=== PATIENT | male | born 1940 | race Caucasian/White ===

== ENCOUNTER 2023-10-14 11:52 | Emergency (ER) | payer OTHER, SELFPAY ==
[2023-10-14 11:55] VITALS: BP 153/66; PULSE 54; RESP 16; TEMP 36.6; O2SAT 98; BMI 32.4
--- NOTE | 2023-10-14 12:30 | ED_ITS ---
HPI - Wound/Laceration <Chanel Sloan PA-C - Last Filed: 10/14/23 13:09> General Chief Complaint: Wound/Laceration Stated Complaint: lt hand lac/index and middle finger Time Seen by Provider: 10/14/23 12:11 Source: patient and family Mode of arrival: Ambulatory History of Present Illness HPI narrative: 83-year-old male with past medical history CVA, CAD presents to the ED for laceration sustained to the left hand. Sustained the lacerations 2 6 hours ago, tried to apply pressure bandages to control the bleeding. Patient decided to come into the ED today given that his wounds have continued to ooze. Patient is on Plavix. Patient endorses some pain at the site of the lacerations but denies numbness, tingling, weakness. Patient endorses full range of motion of all fingers. Related Data Allergies Allergy/AdvReac Type Severity Reaction Status Date / Time No Known Drug Allergies Allergy Verified 10/14/23 12:00 Review of Systems <Chanel Sloan PA-C - Last Filed: 10/14/23 13:09> Constitutional Constitutional: Denies chills, Denies fatigue, Denies fever(s), Denies frequent falls, Denies lethargy and Denies weakness Eyes Eyes: Denies change in vision, Denies eye discharge, Denies irritation and Denies loss of vision ENT Ears, Nose, Mouth, and Throat: Denies change in voice, Denies dizziness, Denies neck pain, Denies sore throat and Denies throat swelling Cardiovascular Cardiovascular: Denies chest pain, Denies irregular heart rhythm, Denies lightheadedness, Denies palpitations, Denies dyspnea, Denies dyspnea on exertion and Denies orthopnea Respiratory Respiratory: Denies cough, Denies dyspnea, Denies dyspnea on exertion and Denies wheezing Gastrointestinal Gastrointestinal: Denies abdominal pain, Denies change in bowel habits, Denies diarrhea, Denies nausea and Denies vomiting Musculoskeletal Musculoskeletal: Denies neck pain and Denies numbness Integumentary/Breasts Skin/Breast: Denies pruritus, Denies erythema, Denies rash and Reports wounds Neurologic Neurologic: Denies behavioral changes, Denies confusion, Denies dizziness, Denies frequent falls, Denies loss of vision, Denies numbness and Denies weakness Psychiatric Psychiatric: Denies anxiety, Denies behavioral changes, Denies confusion, Denies depression, Denies homicidal ideation and Denies suicidal ideation Endocrine Endocrine: Denies fatigue, Denies flushing and Denies palpitations Hematologic/Lymphatic Hematologic/Lymphatic: Denies easy bruising Allergic/Immunologic Allergic/Immunologic: Denies urticaria, Denies throat swelling and Denies wheezing Patient History <Chanel Sloan PA-C - Last Filed: 10/14/23 13:09> Social History Smoking Status: Former smoker Smoking Status: Former smoker alcohol intake frequency: a few times a month Substance Use Type: does not use Exam <Chanel Sloan PA-C - Last Filed: 10/14/23 13:09> Narrative Exam Narrative: Const General:?cooperative, healthy appearing and comfortable [facility] Head:?normal to inspection Ears:?hearing grossly normal bilaterally Nose:?external nose normal Face and sinus:?normal facial exam and sinuses nontender Mouth:?oral mucosae normal Throat:?posterior oropharynx normal Eyes General:?appearance normal, both eyes and all related structures Neck Neck:?normal visual inspection and no lymphadenopathy noted Resp Effort & Inspection:?normal respiratory effort Auscultation:?clear to auscultation bilaterally Cardio Rate:?regular rate Rhythm:?regular rhythm Integumentary There is a laceration to the 3rd digit of the left hand, lateral to the nail. There is also a laceration to the base of 2nd nail bed. No underlying structures visualized on exam. There is full range of motion of both fingers. Strength and sensation is intact. Patient is neurovascularly intact. Wounds appear to be oozing blood but no pulsatile bleeding. Neuro General:?patient alert, patient awake and patient oriented x3 Initial Vital Signs Initial Vital Signs: Vital Signs Temperature 97.9 F 10/14/23 11:55 Pulse Rate 54 L 10/14/23 11:55 Respiratory Rate 16 10/14/23 11:55 Blood Pressure 153/66 H 10/14/23 11:55 Pulse Oximetry 98 10/14/23 11:55 Oxygen Delivery Method Room Air 10/14/23 11:55 <Stephen Hutchinson DO - Last Filed: 10/14/23 13:16> Initial Vital Signs Initial Vital Signs: Vital Signs Temperature 97.9 F 10/14/23 11:55 Pulse Rate 54 L 10/14/23 11:55 Respiratory Rate 16 10/14/23 11:55 Blood Pressure 153/66 H 10/14/23 11:55 Pulse Oximetry 98 10/14/23 11:55 Oxygen Delivery Method Room Air 10/14/23 11:55 Course <Chanel Sloan PA-C - Last Filed: 10/14/23 13:09> Orders Ordered: Discontinued Medications Diphtheria/Tetanus/Acell Pertussis (Tet,Diph,Pertuss(Acell),Vac/Pf 0.5 Ml Syringe) 0.5 ml IM .ONCE ONE Stop: 10/14/23 12:02 Last Admin: 10/14/23 12:44 Dose: 0.5 ml Documented By: MICKEY Vital Signs Vital signs: Vital Signs - 8 hr 10/14/23 11:55 Temperature 97.9 F Pulse Rate 54 L Respiratory Rate 16 Blood Pressure 153/66 H Pulse Oximetry 98 Oxygen Delivery Method Room Air <Stephen Hutchinson DO - Last Filed: 10/14/23 13:16> Orders Ordered: Discontinued Medications Diphtheria/Tetanus/Acell Pertussis (Tet,Diph,Pertuss(Acell),Vac/Pf 0.5 Ml Syringe) 0.5 ml IM .ONCE ONE Stop: 10/14/23 12:02 Last Admin: 10/14/23 12:44 Dose: 0.5 ml Documented By: MICKEY Vital Signs Vital signs: Vital Signs - 8 hr 10/14/23 11:55 Temperature 97.9 F Pulse Rate 54 L Respiratory Rate 16 Blood Pressure 153/66 H Pulse Oximetry 98 Oxygen Delivery Method Room Air MDM - Wound/Laceration <Chanel Sloan PA-C - Last Filed: 10/14/23 13:09> MDM Narrative Medical decision making narrative: 83-year-old male with past medical history CVA, CAD presents to the ED for laceration sustained to the left hand. On physical exam, patient has lacerations to the tip of the 2nd and 3rd digits of the left hand. Laceration is not deep enough for suspicion of bony injury. No underlying structures v isualized on exam. Given that the wound is more than 24 hours old, primary closure not indicated. Soaked the wounds, cleaned them well, applied Surgicel dressing. Signs of infection, wound care discussed with patient. Patient verbalized understanding. Medical records reviewed: Yes Discharge Plan Departure Patient Disposition: Home Clinical Impression: Laceration Instructions: DI for Minor Laceration Activity Restrictions/Additional Instructions: You were evaluated in the ED today for a hand injury. Your injuries on the middle and index fingers were cleaned, a Surgicel dressing applied to control bleeding and bandaged. Please keep the Surgicel dressing on until the wound heals. You may change out the Coban wrap around it as needed. Please keep the wound clean and dry. If you note any signs of infection including worsening redness, pain, swelling, warmth, discharge, please return to the ED. please also return to the ED if your wound continues to bleed uncontrollably. Stand Alone Forms: Patient Portal/API ED Sign-out <Stephen Hutchinson, DO - Last Filed: 10/14/23 13:16> Cosign ED Attending Cosignature Attestation: Dr Hutchinson Co-Sign Statement: I was available for consultation during this patient's emergency department visit. This chart is signed by myself for administrative purposes only. I did not have direct contact with this patient during this visit. They were seen independently by the APC.
[2023-10-14] MEDS: TET,DIPH,PERTUSS(ACELL),VAC/PF 0.5 ML SYRINGE IM (12:44)
[2023-10-14 13:10] VITALS: BP 130/66; PULSE 51; RESP 16; TEMP 36.6; O2SAT 98
== END 2023-10-14 13:10 | disposition home or self-care (01) ==
PROVIDERS: Emergency Provider Student in an Organized Health Care Education/Training Program
DX: S61.412A Laceration without foreign body of left hand, initial encounter (principal); X58.XXXA Exposure to other specified factors, initial encounter; Z79.01 Long term (current) use of anticoagulants; Z23 Encounter for immunization
CPT/HCPCS: 90471; 99283; 90715

== ENCOUNTER → 2025-02-03 07:07 | Outpatient (CLI) | payer MEDICARE, SELFPAY ==
--- NOTE | 2025-02-03 07:10 | DI.US.S_ITS ---
PROCEDURE: US ABD AORTA ANEURYSM SCREEN INDICATIONS: infrarenal celiac aneurysms TECHNIQUE: Real-time scanning was performed of the aorta and proximal common iliac arteries, with image documentation. COMPARISON: Outside Facility, US, US ABD AORTA ANEURYSM SCREEN, 12/05/2022, 10:52. FINDINGS: Aorta: Proximal abdominal aorta is 3.2 cm, previously 2.9 cm. Mid abdominal aorta 2.6 cm, previously 2.4 cm Distal abdominal aorta 3.1 cm, previously 3.2 cm. Right and left common iliac arteries both 0.9 cm in maximum transverse diameter. Iliacs: Proximal common iliac arteries are normal in caliber. IMPRESSION: Slight interval increase in abdominal aortic aneurysm since the prior exam maximal transverse diameter 3.2 cm proximally, 3.1 cm distally. Dictated by: Torito Coppola M.D. on 02/07/2025 at 8:51 Approved by: Torito Coppola M.D. on 02/07/2025 at 8:53
--- NOTE | 2025-02-03 07:10 | DI.ECHO.S_ITS ---
[place] [facility]---------+ [facility] : : [id number] : : [place] : : [id number] : : Phone: [phone] Echocardiogram Report + + :Name: JUANA RODGERS Study Date: 02/03/2025 Height: 65 in : :[facility] ReadingLocation: Weight: 190 lb : : Gender: Male BSA: 1.9 m2 : :: 1940 Age: 84 yrs BP: 148/68 mmHg: :Reason For Study: CABG WITH AVR 2010 : :Ordering Physician: NKECHI, : :BRAD Tellez Performed By: Lyubov Zapata : :Referring: BRAD ARBOLEDA : + + Interpretation Summary Images were not obtained from all of the standard acoustic windows due to the limited scope of the study. The ejection fraction is estimated to be 60-65%. There is a bioprosthetic aortic valve. There is mild perivalvular regurgitation around the prosthetic aortic valve. Multiple jets present. The peak aortic velocity is 3.5 m/sec. The calculated aortic valve area is 1.2 cm2. Procedure: A two-dimensional transthoracic echocardiogram with color flow and Doppler was performed. There is no prior echocardiogram noted for this patient. Images were not obtained from all of the standard acoustic windows due to the limited scope of the study. The patient was in sinus bradycardia with heart rates between 46-62 bpm during the exam. Left Ventricle: The left ventricle is normal in size. There is mild concentric left ventricular hypertrophy. The ejection fraction is estimated to be 60-65%. Left ventricular wall motion is normal. Aortic Valve: There is a bioprosthetic aortic valve. There is mild perivalvular regurgitation around the prosthetic aortic valve. The peak aortic velocity is 3.5 m/sec. The aortic valve mean gradient is 24 mmHg. The calculated aortic valve area is 1.2 cm2. Multiple jets present. Great Vessels: The ascending aorta is at the upper limits of normal in size. The IVC is of normal diameter and collapses greater than 50% with a sniff. This suggests a low right atrial pressure of 3 mm Hg. Pericardium/ Pleura There is no pericardial effusion. There is no pleural effusion. MMode/2D Measurements & Calculations LVIDd: 5.4 cm LVOT diam: 2.0 cm LVIDs: 3.5 cm asc Aorta Diam: 3.8 cm FS: 35.6 % IVSd: 1.2 cm LVPWd: 1.1 cm LV jade. diameter/BSA (cm/m^2): 2.8 LV sys. diameter/BSA (cm/m^2): 1.8 IVC diam: 1.8 cm Doppler Measurements & Calculations Ao V2 max: 353.4 cm/sec LVOT Max Bonifacio: 127.4 cm/sec Ao V2 mean: 221.5 cm/sec LV V1 max P.5 mmHg Ao max P.5 mmHg LV V1 VTI: 29.1 cm Ao mean P.6 mmHg GALI(I,D): 1.3 cm2 Ao V2 VTI: 75.0 cm GALI(V,D): 1.2 cm2 sev ratio: 0.39 GALI indexed to BSA (cm^2/m^2): 0.65 SV(LVOT): 94.5 ml Reading Physician:11:36 AM
== END ==
PROVIDERS: PCP Family Medicine; Referring Provider Family Medicine; Visit Provider Family Medicine
DX: I35.1 Nonrheumatic aortic (valve) insufficiency (principal); I71.40 Abdominal aortic aneurysm, without rupture, unspecified; I25.10 Atherosclerotic heart disease of native coronary artery without angina pectoris; I72.8 Aneurysm of other specified arteries; I71.43 Infrarenal abdominal aortic aneurysm, without rupture; E78.5 Hyperlipidemia, unspecified; Z95.2 Presence of prosthetic heart valve; Z86.73 Personal history of transient ischemic attack (TIA), and cerebral infarction without residual deficits; Z95.1 Presence of aortocoronary bypass graft
CPT/HCPCS: 76706; 93307

== ENCOUNTER → 2025-03-28 11:01 | Outpatient (CLI) | payer MEDICARE, SELFPAY ==
--- NOTE | 2025-03-28 11:03 | DI.RAD.S_ITS ---
PROCEDURE: XR KNEE LT 3V INDICATIONS: Left knee pain TECHNIQUE: 3 views of the knee were acquired. COMPARISON: None. 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 Extensor mechanism enthesopathy, with moderate dystrophic calcification adjacent to the tibial tuberosity. Patellar enthesopathy also seen. Small joint effusion. Vascular calcifications. If there is high concern for further derangement, consider MRI evaluation. Dictated by: Richard Salazar M.D. on 03/28/2025 at 15:50 Approved by: Richard Salazar M.D. on 03/28/2025 at 15:51
[2025-03-28 12:35] LABS: Add Manual Diff / Slide Review NO; Basophils Absolute Auto 0 /uL (0-100); Basophils Percent Auto 0.5 % (0-2); Eosinophils Absolute Auto 200 /uL (0-450); Eosinophils Percent Auto 3.7 % (2-4); Hematocrit 35.9 % (41-53); Hemoglobin 12.2 g/dL (13.5-17.5); Lymphocytes Absolute Auto 1600 /uL (1100-4500); Lymphocytes Percent Auto 27.8 % (25-40); Mean Corpuscular HGB Conc 33.8 % (30-36); Mean Corpuscular Hemoglobin 31.5 PG (26-34); Monocytes Absolute Auto 400 /uL (0-900); Monocytes Percent Auto 7.7 % (3-14); Neutrophils Absolute Auto 3400 /uL (1500-7000); Neutrophils Percent Auto 60.3 % (50-75); Platelet Count 163 X10^3/uL (150-400); Red Blood Cell Count 3.86 X10^6/uL (4.5-5.9); Red Cell Distribution Width 13.8 % (11.6-14.8); White Blood Cell Count 5.6 X10^3/uL (4.5-11.0)
[2025-03-28 12:38] LABS: HEMOLYSIS < 15 (0-50); Iron 79 ug/dL (49-181)
[2025-03-28 12:49] LABS: Percent Iron Saturation 29 % (20-50); Total Iron Binding Capacity 273 ug/dL (261-462); Transferrin 209 mg/dL (206-381)
== END ==
PROVIDERS: PCP Family Medicine; Referring Provider Family Medicine; Visit Provider Family Medicine
DX: M25.462 Effusion, left knee (principal); M17.12 Unilateral primary osteoarthritis, left knee; M77.8 Other enthesopathies, not elsewhere classified; R29.898 Other symptoms and signs involving the musculoskeletal system; D50.8 Other iron deficiency anemias; Z79.899 Other long term (current) drug therapy
CPT/HCPCS: 36415; 73562; 83540; 83550; 85025

== ENCOUNTER → 2025-09-14 10:42 | Outpatient (CLI) | payer MEDICARE, SELFPAY ==
--- NOTE | 2025-09-14 10:43 | DI.RAD.S_ITS ---
PROCEDURE: XR KNEE RT 3V INDICATIONS: Right Knee Pain TECHNIQUE: 3 views of the knee were acquired. COMPARISON: [facility], CR, XR KNEE LT 3V, 03/28/2025, 11:06. FINDINGS: Bones: There are no osseous abnormalities. 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 No effusion . Soft tissues: Normal IMPRESSION: Moderate degeneration Dictated by: Cristóbal Pitts M.D. on 09/15/2025 at 12:47 Approved by: Cristóbal Pitts M.D. on 09/15/2025 at 12:47
== END ==
PROVIDERS: Family Provider Family Medicine; PCP Family Medicine; Referring Provider Family Medicine; Visit Provider Family Medicine
DX: M25.561 Pain in right knee (principal); M17.11 Unilateral primary osteoarthritis, right knee
CPT/HCPCS: 73562

== ENCOUNTER → 2025-11-08 08:27 | Outpatient (CLI) | payer MEDICARE, SELFPAY ==
[2025-11-08 09:06] LABS: Hematocrit 36.9 % (41-53); Hemoglobin 12.6 g/dL (13.5-17.5); Mean Corpuscular HGB Conc 34.2 % (30-36); Mean Corpuscular Hemoglobin 30.7 PG (26-34); Mean Corpuscular Volume 90.0 fL (80-100); Platelet Count 168 X10^3/uL (150-400)
[2025-11-08 09:34] LABS: HEMOLYSIS 15 (0-50); Iron 96 ug/dL (49-181)
[2025-11-08 09:45] LABS: Percent Iron Saturation 31 % (20-50); Total Iron Binding Capacity 306 ug/dL (261-462); Transferrin 247 mg/dL (206-381)
[2025-11-08 10:25] LABS: Ferritin 28 ng/mL (18-464); HEMOLYSIS < 15 (0-50)
[2025-11-08 10:40] LABS: Alanine Aminotransferase 11 IU/L (<50); Albumin 4.2 g/dL (3.5-5.0); Albumin Globulin Ratio 1.5 (1.0-2.8); Alkaline Phosphatase 62 U/L (38-126); Blood Urea Nitrogen 28 mg/dL (9-20); Calcium 9.1 mg/dL (8.4-10.2); Carbon Dioxide 21 mmol/L (22-32); Chloride 112 mmol/L (98-107); Cholesterol 166 mg/dL (140-199); Estimated Glomerular Filt Rate > 60 mL/min (>60); Globulin 2.8 g/dL (1.7-4.1); Glucose 102 mg/dL (70-99); HDL Cholesterol 42 mg/dL (40-60); Magnesium 2.0 mg/dL (1.6-2.3); Potassium 4.1 mmol/L (3.4-5.1); Sodium 143 mmol/L (137-145); Total Protein 7.0 g/dL (6.3-8.2); Triglycerides 180 mg/dL (35-150)
== END ==
PROVIDERS: PCP Family Medicine; Referring Provider Family Medicine; Visit Provider Family Medicine
DX: E78.5 Hyperlipidemia, unspecified (principal)
CPT/HCPCS: 36415; 80053; 80061; 82728; 83540; 83550; 83735; 85027